=== PATIENT | female | born 1955 | race Caucasian/White ===

== ENCOUNTER → 2017-01-25 | Outpatient (CLI) | payer OTHER ==
--- NOTE | 2017-01-26 13:32 | MAMMOGRAPHY REPORT ---
BILATERAL DIGITAL SCREENING MAMMOGRAM TOMOSYNTHESIS WITH CAD: 01/25/2017 CLINICAL HISTORY: Routine screening. Patient has no complaints. TECHNIQUE: Breast tomosynthesis in addition to standard 2D mammography was performed. Current study was also evaluated with a Computer Aided Detection (CAD) system. COMPARISON: Comparison is made to exams dated: 01/29/2014 mammogram, 06/02/2006 mammogram, and 12/11/19 04 mammogram - [facility]. BREAST COMPOSITION: The tissue of both breasts is heterogeneously dense, which may obscure small mas ses. FINDINGS: There is possible architectural distortion seen within the right lateral breast on the cc tomosynthesis images, likely projecting superiorly on the MLO view, for which spot compression tomosy nthesis views and possible breast ultrasound are recommended for further evaluation. The remainder of both breasts are stable compared to prior exams, without suspicious masses, calcific ations, or areas of architectural distortion noted. IMPRESSION: ACR BI-RADS CATEGORY 0: INCOMPLETE EVALUATION: NEED ADDITIONAL IMAGING EVALUATION Possible right breast architectural distortion, for which additional imaging evaluation is recommende d. The patient will be called to schedule an appointment. Approximately 10% of breast cancers are not detected with mammography. A negative mammographic report should not delay biopsy if a clinically suggestive mass is present. Jessica Stuart M.D. ah/:01/25/2017 17:07:00 Research Dietitian: Laurie FELIZ(R)(M), [facility] letter sent: Addl Imaging 0 BI-RADS Code: ACR BI-RADS Category 0: Incomplete Evaluation: Need Additional Imaging Evaluation
== END | disposition home or self-care (01) ==
LOC: C.MAMM 12:54
PROVIDERS: ATTEND Internal Medicine
DX: Z12.31 Encounter for screening mammogram for malignant neoplasm of breast (principal); R92.8 Other abnormal and inconclusive findings on diagnostic imaging of breast

== ENCOUNTER → 2017-02-08 | Outpatient (CLI) | payer OTHER ==
--- NOTE | 2017-02-08 16:07 | MAMMOGRAPHY REPORT ---
UNILATERAL RIGHT DIGITAL DIAGNOSTIC MAMMOGRAM TOMOSYNTHESIS AND TARGETED RIGHT ULTRASOUND: 02/08/2017 CLINICAL HISTORY: 61-year-old woman called back from screening mammography for possible architectural distortion in the right breast. TECHNIQUE: Spot compression right CC and MLO 2-D and tomosynthesis images were obtained. COMPARISON: Comparison is made to exams dated: 06/02/2006 mammogram, 01/29/2014 mammogram, 01/25/2017 mammogram, and 02/08/2017 ultrasound - [facility]. BREAST COMPOSITION: There are scattered areas of fibroglandular density in the right breast. FINDINGS: The spot compression views of the right breast demonstrate persistent focal architectural distortion in the upper outer middle to posterior right breast. It is difficult to obtain accurate m easurements mammographically, but the total area of distortion measures approximately 2.7 x 2.1 cm. No associated microcalcification. No other definite areas of distortion are seen in the visualized r ight breast. Further evaluation with ultrasound was performed. Targeted ultrasound was performed in the lateral right breast with particular attention to the 8:00 t hrough 10:00 axes. In the 9:00 to 9:30 right breast, 7 cm from the nipple, there is an ill-defined h ypoechoic area of shadowing. Architectural distortion is not definitely appreciated. The area of sh adowing could correspond to the mammographic distortion but given the vague nature I am unsure if thi s definitively correlates. The shadowing area on ultrasound measures approximately 8.9 x 8.7 mm. No other discrete solid or cystic mass is seen in the lateral right breast on ultrasound. IMPRESSION: ACR BI-RADS CATEGORY 0: INCOMPLETE EVALUATION: NEED ADDITIONAL IMAGING EVALUATION, TARG ETED ULTRASOUND ACR BI-RADS CATEGORY 0: INCOMPLETE EVALUATION: NEED ADDITIONAL IMAGING EVALUATION There is subtle focal architectural distortion in the upper outer middle one third of the right breas t identified mammographically, without definitive sonographic correlate. Architectural distortion is suspicious for radial scar versus carcinoma. Potential options of surgical excision with tomosynthe sis guided preoperative localization versus breast MRI and potential MRI guided biopsy were provided to the patient. I would prefer MRI and minimally invasive image biopsy if possible, as it puts the p atient at less risk of general anesthesia and sedation. Therefore, further evaluation with a contras t-enhanced breast MRI is recommended to exclude the possibility of a suspicious enhancing mass in the right upper outer quadrant. These results and recommendations were discussed with the patient at the time of the exam. She will consider her options and contact her insurance company prior to making any further appointments. Approximately 10% of breast cancers are not detected with mammography. A negative mammographic report should not delay biopsy if a clinically suggestive mass is present. Zoe Escamilla M.D. ay/:02/08/2017 14:32:42 Freelance Operator: Melvina FELIZ(R)(M), [facility] letter sent: Addl Imaging 0 BI-RADS Code: ACR BI-RADS Category 0: Incomplete Evaluation: Need Additional Imaging Evaluation Ult rasound BI-RADS: ACR BI-RADS Category 0: Incomplete Evaluation: Need Additional Imaging Evaluation
== END | disposition home or self-care (01) ==
LOC: C.MAMM 13:46
PROVIDERS: ATTEND Internal Medicine
DX: R92.8 Other abnormal and inconclusive findings on diagnostic imaging of breast (principal)

== ENCOUNTER → 2017-05-21 | Outpatient (CLI) | payer OTHER ==
[2017-05-21 11:21] LABS: BLOOD UREA NITROGEN 28 mg/dl (7-18); CREATININE 0.84 mg/dl (0.60-1.20)
== END | disposition home or self-care (01) ==
LOC: C.LABBC 08:34
PROVIDERS: ATTEND Internal Medicine Geriatric Medicine
DX: Z01.812 Encounter for preprocedural laboratory examination (principal)

== ENCOUNTER → 2017-05-25 | Outpatient (CLI) | payer OTHER ==
[~2017-05-25] MED LIST: GADAVIST IV PRN
--- NOTE | 2017-05-28 08:15 | MAMMOGRAPHY REPORT ---
BREAST MRI OF BOTH BREASTS : 05/25/2017 CLINICAL HISTORY: 62-year-old woman with a focal area of architectural distortion in the lateral righ t breast but no sonographic correlate identified. At the time of diagnostic workup tomosynthesis wilfredo ded biopsy was not available at this institution and MRI breast recommended to assess for an abnormal enhancing mass for possible biopsy targeting purposes. In the interval from diagnostic workup to th e current exam, tomosynthesis guided biopsy is now available at this institution. COMPARISON: Comparison is made to exams dated: 06/02/2006 mammogram, 01/29/2014 mammogram, 01/25/2017 mammogram, 02/08/2017 mammogram, and 02/08/2017 ultrasound - [facility]. TECHNIQUE: Using a 1.5 Yasemin magnet and dedicated breast coil, multisequence axial images were obtain ed through the breasts. After uneventful IV administration of 14 mL of Gadavist, dynamic multiphase contrast-enhanced axial images, and sagittal postcontrast were obtained. Temporal subtraction axial images and 3-D MIP images are provided. Everything was then reviewed on a 3-D workstation, [employer]. FINDINGS: Right breast: There is moderate background parenchymal enhancement with numerous round and oval scatt ered enhancing foci throughout the right breast. There is focal enhancing architectural distortion i n the 9:00 middle to posterior right breast, measuring approximately 13 x 14 x 21 mm (axial page 92/1 30 and sagittal page 120/144). This demonstrates predominantly persistent with central plateau kinet ics and correlates with the subtle architectural distortion seen mammographically. This enhancing ar ea of distortion is suspicious for malignancy and definitive characterization with tissue sampling is recommended. Given that tomosynthesis guided biopsy is currently available at our institution, a st ereotactic tomosynthesis guided biopsy is recommended. No other suspicious enhancing mass, suspiciou s non-mass enhancement or suspicious kinetics is identified in the right breast. There is no skin th ickening or nipple retraction. The retromammary fat is intact. There is a slightly prominent right axillary lymph node in the superior axillary region measuring 18 mm, with a cortex measuring up to 5. 6 mm. Although this could be due to imaging angle, further evaluation with a second look ultrasound in the right axilla is recommended. If a morphologically abnormal lymph node is identified, ultrasou nd-guided core biopsy could also be performed. Left breast: There is moderate background parenchymal enhancement, with numerous round and oval scatt ered enhancing foci throughout the left breast. No suspicious enhancing mass, non-mass enhancement, suspicious kinetics or architectural distortion is seen. No skin thickening or nipple retraction. T he retromammary fat is intact. No suspicious left axillary lymphadenopathy. IMPRESSION: ACR BI-RADS CATEGORY 4: SUSPICIOUS 1. There is enhancing focal architectural distortion in the 9:00 middle to posterior right breast me asuring 21 mm, and correlating with the mammographic distortion. This finding remain suspicious and further evaluation with a stereotactic tomosynthesis guided biopsy is recommended. 2. There is a slightly prominent right axillary lymph node with possible thickened cortex measuring up to 5.6 mm. Targeted second look ultrasound in the right axilla with possible ultrasound-guided co re biopsy is recommended. 3. No MRI evidence of malignancy in the left breast. The patient will be called to schedule an appointment. Zoe Escamilla M.D. ay/:05/25/2017 16:08:35 Hand Straightener: photolith operator, [facility] letter sent: Abnormal 4/5 BI-RADS Code: ACR BI-RADS Category 4: Suspicious
== END | disposition home or self-care (01) ==
LOC: C.MRI 13:20
PROVIDERS: ATTEND Internal Medicine
DX: R92.8 Other abnormal and inconclusive findings on diagnostic imaging of breast (principal); R59.0 Localized enlarged lymph nodes

== ENCOUNTER → 2017-06-10 | Outpatient (CLI) | payer OTHER ==
--- NOTE | 2017-06-10 09:43 | Discharge Instructions ---
Discharge Instructions Procedure Procedure Date: Jun 10, 2017. Reason for visit: Rt Distortion/2ND Look Us Poss Bx Rt Axillary Ln. Discharge Discharge Date: Jun 10, 2017. Discharge Diagnosis: status post breast biopsy Instructions Activity Recommendations: Additional Limitations (see below) Return to School/Work: no limitations Recommended Home Diet: No Limitations Provider Instructions: ACTIVITY RECOMMENDATIONS: * No lifting, pushing, pulling or exercising the affected side for three days. RETURN TO SCHOOL/WORK: * You may return to work/school after the procedure, but do not perform any strenuous activities for 24 to 48 hours. MEDICATIONS: * Tylenol (two 325 mg) every four to six hours if needed for mild pain (if not allergic to Tylenol). DIET: * Resume previous diet. SPECIAL CARE INSTRUCTIONS: * Keep biopsy site dry for 24 hours. May shower after 24 hours, but do not soak (bathe) incision. * May remove Tegaderm (plastic patch) tomorrow AFTER showering. * Leave the steri-strips on for one week. Allow the steri-strips to fall off by themselves. If not off after one week, you may remove them. You may place a Bandaid crosswise over the strips, if desired. * Apply ice 10 minutes on and 10 minutes off as needed. * Wear a bra at bedtime to sleep more comfortably for 2-3 days. * Your referring physician should have the results after approximately 5 to 7 business days. * Call for unusual bleeding, fever, drainage, etc or if you have any questions call during normal business hours or after hours call Dr Stuart, . FOLLOW UP VISIT: Follow-up with Referring Physician as scheduled. Allergies Uncoded Allergies: DEMEROL, MARCAINE (Allergy, Unknown, 08/17/02) N (Allergy, Unknown, 08/17/02) NKA (Allergy, Unknown, 08/17/02) NO (Allergy, Unknown, 08/17/02) NONE (Allergy, Unknown, 08/17/02) Marina Ramirez Recommendations: Call your doctor if: * Temperature above 101 degrees * Pain not relieved by pain medicine ordered * There is increased drainage or redness from any incision * You have any unanswered questions or concerns. Your Doctors Instructions noted above were prepared by provider Jessica Stuart. Patient Signature Section: Patient Instructions Signature Page Edith Alvarado Patient (or Guardian) Signature/Date: I have read and understand the instructions given to me by my caregivers. Caregiver/RN/Doctor Signature/Date: The above-named patient and/or guardian has received patient instructions on this date. + Original Patient Signature Page (only) stays with chart. Please make copy for patient.
--- NOTE | 2017-06-10 14:36 | MAMMOGRAPHY REPORT ---
STEREOTACTIC GUIDED BIOPSY RIGHT BREAST: 06/10/2017 CLINICAL HISTORY: Architectural distortion in the right 9:00 breast, with corresponding enhancement s een on recent breast MRI. PATIENT CONSENT: The procedure, risks, benefits, and alternatives of stereotactic biopsy with clip pl acement were discussed with the patient, and verbal and written consent was obtained. A timeout was performed immediately prior to the procedure. PROCEDURE DESCRIPTION: With tomosynthesis stereotactic guidance, aseptic technique, and lidocaine as a local anesthetic (1% lidocaine to anesthetize the skin and 1% lidocaine with epinephrine to anesthe tize the deeper tissues), the architectural distortion of concern in the right 9:00 breast was sample d multiple times with a 9-gauge vacuum-assisted biopsy needle ([employer]). The path of approach wa s craniocaudal. A metallic marker clip was placed at the biopsy site. This was confirmed on postpro cedure mammograms. Direct pressure was applied at the biopsy site and hemostasis was readily achieve d. The patient tolerated the procedure without complication. She was given wound care instructions. COMPARISON: Comparison is made to exams dated: 05/25/2017 breast MRI, 02/08/2017 mammogram, 02/08/2017 u ltrasound, 01/25/2017 mammogram, 01/29/2014 mammogram, and 06/02/2006 mammogram - [facility]. IMPRESSION: STEREOTACTIC GUIDED BIOPSY Tomosynthesis stereotactic biopsy of the enhancing architectural distortion in the right 9:00 breast, with clip placement. The patient will receive pathology results from her referring provider. Jessica Stuart M.D. ah/:06/10/2017 10:00:33 Shop Foreman: Ashanti Tubbs, [facility]
--- NOTE | 2017-06-10 14:36 | MAMMOGRAPHY REPORT ---
UNILATERAL RIGHT DIGITAL DIAGNOSTIC MAMMOGRAM TOMOSYNTHESIS: 06/10/2017 CLINICAL HISTORY: Status post right breast stereotactic biopsy. TECHNIQUE: Breast tomosynthesis in addition to standard 2D mammography was performed. Postprocedura l right CC and ML tomosynthesis images including C views were obtained. COMPARISON: Comparison is made to exams dated: 06/10/2017 stereotactic biopsy, 05/25/2017 breast MRI, 02/08/2017 mammogram, 02/08/2017 ultrasound, 01/25/2017 mammogram, and 01/29/2014 mammogram - [facility]. BREAST COMPOSITION: There are scattered areas of fibroglandular density in the right breast. FINDINGS: A new biopsy marker clip is seen at the site of the biopsied architectural distortion in t he right 9:00 breast. No significant postbiopsy hematoma is seen. IMPRESSION: POST PROCEDURE IMAGING FOR MARKER PLACEMENT New biopsy marker clip status post right breast biopsy. Pathology results are pending. Approximately 10% of breast cancers are not detected with mammography. A negative mammographic report should not delay biopsy if a clinically suggestive mass is present. Jessica Stuart M.D. ah/:06/10/2017 10:12:49 Nuclear Plant Operator: Alix FELIZ(Oneyda)(Danny), [facility] BI-RADS Code: Post Procedure Imaging For Marker Placement
--- NOTE | 2017-06-10 14:36 | MAMMOGRAPHY REPORT ---
ULTRASOUND OF RIGHT BREAST: 06/10/2017 CLINICAL HISTORY: Prominent right axillary lymph node seen on recent breast MRI, for which second loo k ultrasound was recommended. COMPARISON: Comparison is made to exams dated: 06/10/2017 stereotactic biopsy, 05/25/2017 breast MRI, 02/08/2017 mammogram, 01/25/2017 mammogram, and 01/29/2014 mammogram - [facility]. TECHNIQUE: Real-time targeted ultrasound of the right axilla was performed. FINDINGS: Real-time, high resolution targeted ultrasound was performed of the right axilla. There a re morphologically normal right axillary lymph nodes which have normal fatty rose marie and thin peripheral cortices. No morphologically abnormal lymph node is seen. Given the absence of adenopathy, biopsy was not performed. IMPRESSION: ACR BI-RADS CATEGORY 2: BENIGN Morphologically normal right axillary lymph nodes on ultrasound, without evidence of adenopathy. Giv en that the lymph nodes appear normal morphologically, biopsy was not performed. The patient was joao bally notified of the results. Jessica Stuart M.D. ah/:06/10/2017 10:03:04 Campaign Specialist: Jessica Stuart MD, [facility] BI-RADS Code: ACR BI-RADS Category 2: Benign
== END | disposition home or self-care (01) ==
LOC: C.MAMM 08:59
PROVIDERS: ATTEND Internal Medicine
DX: R92.0 Mammographic microcalcification found on diagnostic imaging of breast (principal); N60.21 Fibroadenosis of right breast

== ENCOUNTER 2017-07-23 07:50 | Day surgery (SDC) | payer OTHER ==
[2017-07-13 08:27] VITALS: Ht 171.5 cm; Wt 139.3 kg
--- NOTE | 2017-07-13 09:12 | PAT Medication Instructions ---
Service Date Jul 13, 2017. Current Home Medication List Aspirin (Aspirin Ec), 81 MG PO QPM Calcium Carbonate-Vitamin D (Calcium), 1 TAB PO AM Cholecalciferol (Vitamin D3), 1 TAB PO AM Chromium (Chromium), 1 TAB PO AM1-2 X WEEK Clobetasol Propionate (Clobetasol Propionate), 1 APPLN TOP QAM Cyanocobalamin (Vitamin B-12 1000 Mcg), 1,000 MCG PO AM Fish Oil (Good [place]-3), 1 CAP PO AM Ecnsemeebqp-Fkogifcwbep-Pql C- (Glucosamine Chondroitin), 1 TAB PO AM Triamterene/Hctz (Dyazide 37.5MG/25MG), 1 TAB PO QPM [Ketoconazole 2%], 1 DOSE TOP PRN Medication Instructions For Your Scheduled Surgery -Contact your surgeon for instructions for: Aspirin (Aspirin Ec), 81 MG PO QPM - Hold the following medications 2 weeks prior to surgery: Fish Oil (Good Hope-3), 1 CAP PO AM Gvmpwmzwleu-Bkntnktefgj-Npt C- (Glucosamine Chondroitin), 1 TAB PO AM - Hold the following medications 24 hours prior to surgery: [Ketoconazole 2%], 1 DOSE TOP PRN Clobetasol Propionate (Clobetasol Propionate), 1 APPLN TOP QAM - Hold the following medications the night before to surgery: Triamterene/Hctz (Dyazide 37.5MG/25MG), 1 TAB PO QPM - Hold the following medications the morning of surgery: Calcium Carbonate-Vitamin D (Calcium), 1 TAB PO AM Cholecalciferol (Vitamin D3), 1 TAB PO AM Cyanocobalamin (Vitamin B-12 1000 Mcg), 1,000 MCG PO AM Chromium (Chromium), 1 TAB PO AM1-2 X WEEK *NOTHING TO EAT OR DRINK AFTER MIDNIGHT* If you have any questions please call us at [phone] or [phone] or [phone]
[2017-07-13 10:24] LABS: BASO % 0.3 %; BASO ABS # 0.02 K/uL (0-0.2); EOS % 1.5 %; EOS ABS # 0.11 K/uL (0-0.5); HEMATOCRIT 37.5 % (37-47); HEMOGLOBIN 12.7 g/dL (12.0-16.0); IG# 0.01 K/uL (0.00-0.02); LYMPH % 23.5 %; LYMPH ABS # 1.75 K/uL (1.2-3.4); MEAN CELL VOLUME 90.1 fL (80-100); MEAN CORPUSCULAR HEMOGLOBIN 30.5 pg (25-34); MEAN CORPUSCULAR HGB CONC 33.9 g/dl (32-36); MEAN PLATELET VOLUME 8.7 fL (7.4-10.4); MONO % 6.3 %; MONO ABS # 0.47 K/uL (0.11-0.59); NEUT % 68.3 %; NEUT ABS # 5.09 K/uL (1.4-6.5); PLATELET COUNT 238 K/uL (130-400); RED CELL DISTRIBUTION WIDTH CV 12.9 % (11.5-14.5); RED CELL DISTRIBUTION WIDTH SD 42.3 fL (36.4-46.3); WHITE BLOOD COUNT 7.45 K/uL (4.8-10.8)
[2017-07-13 11:30] LABS: CALCIUM 9.2 mg/dl (8.5-10.1); CREATININE 0.78 mg/dl (0.60-1.20); POTASSIUM 3.5 mmol/L (3.5-5.1)
[~2017-07-23] VITALS: Ht 171.5 cm; Wt 139.3 kg
[~2017-07-23 07:50] MED LIST changes: +ASPI81TA28 PO; +CALC-51 PO; +CEFAZOLIN 3000MG IV PUSH 15 ML IV SCH; +CHOL1000 PO; +CHRO200T3 PO; +CLBPO15 TOP; +CYAN10004 PO; -GADAVIST IV PRN; +GLUCTAB7 PO; +KETOCONAZOLE 2% TOP; +LACTATED RINGER'S 1000ML 1,000 ML IV SCH; +OMEG10007 PO; +TRIA37.5 PO
[2017-07-23 08:58] VITALS: BP 163/85; PULSE 80; TEMP 36.9; O2SAT 97
--- NOTE | 2017-07-23 09:50 | History & Physical Bridge Note ---
H&P Re-Evaluation Bridge Note: I have examined the patient, reviewed the History & Physical and in the interval since the performance of the History & Physical I have noted the following changes of clinical significance: No changes noted
[2017-07-23] MEDS ORDERED: LABETALOL HCL IV 5 MG/ML 20ML IV PRN (10:00)
[2017-07-23] MEDS ORDERED: HYDROmorphone INJ 1 MG/ML SYR IV PRN (10:00)
[2017-07-23] MEDS ORDERED: MEPERIDINE HCL 25 MG/ML CARP IV PRN (10:00)
[2017-07-23] MEDS ORDERED: EpHEDrine SULFATE INJ 50 MG/ML AMP IV PRN (10:00)
[2017-07-23] MEDS ORDERED: ATROPINE SULFATE 0.1 MG/ML 5ML SYR IV PRN (10:00)
[2017-07-23] MEDS ORDERED: FENTANYL CITRATE INJ 50 MCG/1 ML 2 ML VIAL IV PRN (10:00)
[2017-07-23] MEDS ORDERED: ONDANSETRON INJ 2 MG/ML 2 ML VIAL IV PRN ×2 (10:00→11:45)
[2017-07-23] MEDS ORDERED: MIDAZOLAM HCL 1 MG/ML 2ML VIAL ONE (10:12)
[2017-07-23] MEDS ORDERED: PROPOFOL IV EMULSION 10 MG/ML 20 ML VIAL IV ONE (10:12)
[2017-07-23] MEDS ORDERED: LIDOCAINE HCL 2% 2 ML VIAL (20MG/ML) ONE (10:12)
[2017-07-23] MEDS ORDERED: FENTANYL CITRATE INJ 50 MCG/1 ML 2 ML VIAL ONE ×2 (10:12→11:02)
--- NOTE | 2017-07-23 11:27 | [facility] Post Operative Brief Note ---
Immediate Operative Summary Operative Date Jul 23, 2017. Pre-Operative Diagnosis abnormal mammogram Post-Operative Diagnosis same Procedure(s) Performed right breast lumpectomy with needle LOC Surgeon robert Pediatric Dietician Surgeon(s) Ortiz whyte Estimated Blood Loss 5 cc Findings Consistent with Post-Op Diagnosis Specimens right breast lump Anesthesia Type General Complication(s) none Disposition Disposition: Recovery Room / PACU
[2017-07-23] MEDS ORDERED: ONDANSETRON INJ 2 MG/ML 2 ML VIAL ONE (11:41)
[2017-07-23] MEDS ORDERED: KETOROLAC TROMETHAMINE 30 MG/ML VIAL ONE (11:41)
[2017-07-23] MEDS ORDERED: DEXAMETHASONE SOD INJ 4 MG/ML VIAL ONE (11:41)
[2017-07-23] MEDS ORDERED: GLYCOPYRROLATE INJ 0.2 MG/ML VIAL ONE (11:41)
[2017-07-23] MEDS ORDERED: NEOSTIGMINE METHYLSULFATE 5 MG/5 ML SYR ONE (11:41)
[2017-07-23] MEDS ORDERED: HYDR-5688 PO (11:42)
[2017-07-23] MEDS ORDERED: LACTATED RINGER'S 1000ML 1,000 ML IV SCH (11:44)
--- NOTE | 2017-07-23 11:44 | Discharge Instructions ---
Discharge Instructions Date of Service Jul 23, 2017. Visit Reason for Visit: Radial Scar Of Right Breast W/Hosp Loc Discharge Discharge Diagnosis / Problem: right lumpectomy Discharge Goals Goal(s): Diagnostic testing Activity Recommendations Activity Limitations: as noted below Shower/Bathe: tomorrow Anesthesia . Post Anesthesia Instructions: If you have had General Anesthesia or IV Sedation: * Do not drive today. * Resume driving when surgeon permits. * Do not make important decisions or sign legal documents today. * Call surgeon for: 1. Temperature elevations greater than 101 degrees F. 2. Uncontrollable pain. 3. Excessive bleeding. 4. Persistent nausea and vomiting. 5. Medication intolerance (nausea, vomiting or rash). * For nausea and vomiting use only clear liquids such as: tea, soda, bouillon until nausea subsides, then gradually increase diet as tolerated. * If you have any concerns or questions, call your surgeon's office. If physician is unavailable and it is an emergency, call 911 or go to the nearest emergency room. . Instructions / Follow-Up Instructions / Follow-Up Dr. Ryan in 1-2 weeks as planned, call [phone] for any questions Diet Recommendations Recommended Home Diet: no limitations Procedures Procedures Performed: Right Breast Lumpectomy with Needle Localization Pending Studies Studies pending at discharge: yes List of pending studies: pathology Medical Emergencies . Who to Call and When: Medical Emergencies: If at any time you feel your situation is an emergency, please call 911 immediately. . Non-Emergent Contact Non-Emergency issues call your: Surgeon Call Non-Emergent contact if: you have a fever, temperature is above 101.5, your pain is not controlled, wound has increased pain . . "Provider Documentation" section prepared by Shayan Livingston. .
[2017-07-23] MEDS ORDERED: MoRPHine SULFATE 4 MG/ML 1 ML CARP\\VIAL IV PRN (11:45)
[2017-07-23] MEDS ORDERED: HYDROCODONE/ACETAMOPHEN 5/325MG TAB PO PRN (11:45)
--- NOTE | 2017-07-23 11:47 | [facility] Operative Report ---
Operative Report Operative Date Jul 23, 2017. Pre-Operative Diagnosis Right Breast Mass Post-Operative Diagnosis Right Breast Mass Procedure(s) Performed Right Breast Lumpectomy with Needle Localization Surgeon Dr. Deven Ryan Fish Net Maker Surgeon(s) Shayan Livingston PA-C Estimated Blood Loss 5ml Findings normal breast tissue Specimens A.) Right Breast - 1.) short stitch superior 2.) long stitch lateral Anesthesia get Complication(s) None Disposition Recovery Room / PACU Description of Procedure After informed consent was obtained the patient had been previously taken to the breast dupo where needle localization was performed under mammography. She was then brought to the operating suite placed in supine position with the right arm extended. After successful intubation the right breast and chest wall were sterilely prepped and draped in usual fashion. I began by making a curvilinear incision just superior and medial to the guidewire. We carried this down through the soft tissue creating flaps using electrocautery. We then cut the wire delivered into the wound itself. Using traction countertraction and cautery we continued to come around the wire in 360 following this down and around the tip of the wire. By continuing to use retraction countertraction and cautery were eventually able to remove the breast lump and one large piece with the guidewire in the center. We marked the specimen such that one short suture marked the superior aspect and 2 long sutures marking the lateral aspect. We did x-ray this and ensured that the clip specimen and guidewire were all adequate. We controlled any bleeding points using electrocautery. We thoroughly irrigated the wound and close it multiple layers using 2-0 Vicryl for deep layers 3-0 Vicryl in layers and 4-0 Monocryl for the skin. Benzoin and Steri-Strips were used for dressing patient was awaken extubated and transferred recovery in stable condition My physician's workforce development assistant was present throughout the entire case. He helped prepped the patient as well as helped with traction throughout the procedure. He also helped with wound closure and dressing placement I attest to the content of the Intraoperative Record and any orders documented therein. Any exceptions are noted below.
[2017-07-23 12:27] VITALS: BP 163/79; PULSE 71; TEMP 36.4; O2SAT 93
--- NOTE | 2017-07-23 12:36 | Anesthesiology Progress Note ---
Anesthesia Post Op Note Date & Time Jul 23, 2017 at 12:35 Vital Signs Pain Intensity: 2.0 Vital Signs Past 12 Hours Date Time Temp Pulse Resp B/P (MAP) Pulse Ox O2 Delivery O2 Flow Rate FiO2 07/23/17 12:20 36.3 71 15 156/79 97 Room Air 07/23/17 12:10 76 20 145/80 94 Room Air 07/23/17 12:00 73 12 162/84 99 Oxymask 10 07/23/17 11:50 72 12 163/85 100 Oxymask 10 07/23/17 11:44 36.2 74 16 175/85 100 Oxymask 10 07/23/17 08:58 36.9 80 18 163/85 (111) 97 Room Air Notes Mental Status: alert / awake / arousable, participated in evaluation Pt Amnestic to Procedure: Yes Nausea / Vomiting: adequately controlled Pain: adequately controlled Airway Patency, RR, SpO2: stable & adequate BP & HR: stable & adequate Hydration State: stable & adequate Anesthetic Complications: no major complications apparent
[2017-07-23 12:57] VITALS: BP 164/76; PULSE 70; TEMP 36.5; O2SAT 95
--- NOTE | 2017-07-23 13:57 | MAMMOGRAPHY REPORT ---
SPECIMEN RIGHT BREAST: 07/23/2017 CLINICAL HISTORY: Status post right breast surgical excision. COMPARISON: Comparison is made to exams dated: 06/10/2017 ultrasound, 06/10/2017 mammogram, 06/10/2017 stereotactic biopsy, 05/25/2017 breast MRI, and 02/08/2017 mammogram - [facility]. Findings: A radiograph was performed of the right breast surgical specimen. The localized biopsy mar ker clip is present within the specimen. Subtle distortion is also seen within the specimen adjacent to the distal aspect of the wire. Results were discussed with Dr. Ryan over the telephone. IMPRESSION: SPECIMEN The imaged specimen contains the preoperatively localized abnormality. Jessica Stuart M.D. ah/:07/23/2017 11:54:35 Chucker: Melvina MAYNARD)(M), [facility]
--- NOTE | 2017-07-23 13:57 | MAMMOGRAPHY REPORT ---
NEEDLE LOCALIZATION RIGHT BREAST: 07/23/2017 CLINICAL HISTORY: Recent stereotactic biopsy of a focal asymmetry in the right 9 o'clock breast, with pathology yielding a radial sclerosing lesion. The patient presents for needle localization prior t o surgical excision. PROCEDURE DESCRIPTION: With imaging guidance, aseptic technique, and 1% lidocaine as the local anesth etic, the area of concern was localized with a 7.5 cm Cruz II needle. The path of approach was la teral. The architectural distortion in the right 9:00 breast is located along the distal portion of the wire, predominantly posterior to the wire, with marielos located at the central aspect of the distort ion. The biopsy marker clip is located approximately 2.6 cm proximal to the tip of the wire, inferio r to the wire. The needle was removed. The patient tolerated the procedure without complication. COMPARISON: Comparison is made to exams dated: 06/10/2017 ultrasound, 06/10/2017 mammogram, 06/10/2017 stereotactic biopsy, 05/25/2017 breast MRI, 02/08/2017 mammogram, and 02/08/2017 ultrasound - [facility]. IMPRESSION: NEEDLE LOCALIZATION Mammographic guided needle localization of the architectural distortion and associated biopsy marker clip in the right 9:00 breast. Jessica Stuart M.D. 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
== END 2017-07-23 13:19 | disposition home or self-care (01) ==
LOC: C.ACU 07:50
PROVIDERS: ATTEND Surgery
DX: N60.21 Fibroadenosis of right breast (principal); N64.89 Other specified disorders of breast; I10 Essential (primary) hypertension; G47.30 Sleep apnea, unspecified; Z82.49 Family history of ischemic heart disease and other diseases of the circulatory system; Z83.3 Family history of diabetes mellitus; Z79.82 Long term (current) use of aspirin; Z79.899 Other long term (current) drug therapy; Z80.41 Family history of malignant neoplasm of ovary; Z80.49 Family history of malignant neoplasm of other genital organs

== ENCOUNTER → 2018-01-31 | Outpatient (CLI) | payer OTHER ==
[~2018-01-31] MED LIST changes: -CEFAZOLIN 3000MG IV PUSH 15 ML IV SCH; -LACTATED RINGER'S 1000ML 1,000 ML IV SCH
--- NOTE | 2018-01-31 11:50 | DIAGNOSTIC IMAGING REPORT ---
L VENOUS DOPP LOWER EXT UNILAT CLINICAL HISTORY: M79.89 Left leg [id number] pain. Edema. TECHNIQUE: Venous Doppler COMPARISON STUDY: None FINDINGS: No evidence for deep venous thrombosis. All major venous structures are patent. There is a 6 x 3 cm complex popliteal cyst posterior to the left knee. IMPRESSION: 1. Study is negative for deep venous thrombosis 2. 6 x 3 cm complex popliteal cyst posterior to the left knee. The above report was generated using voice recognition software. It may contain grammatical, syntax or spelling errors. Electronically signed by: Abraham Camilo M.D. 01/31/2018 11:49 AM Dictated Date/Time: 01/31/2018 11:48 AM
[2018-01-31 12:53] LABS: BASO % 0.3 %; BASO ABS # 0.02 K/uL (0-0.2); EOS ABS # 0.14 K/uL (0-0.5); HEMATOCRIT 36.4 % (37-47); HEMOGLOBIN 12.1 g/dL (12.0-16.0); IG# 0.03 K/uL (0.00-0.02); LYMPH % 23.3 %; LYMPH ABS # 1.65 K/uL (1.2-3.4); MEAN CELL VOLUME 91.5 fL (80-100); MEAN CORPUSCULAR HEMOGLOBIN 30.4 pg (25-34); MEAN CORPUSCULAR HGB CONC 33.2 g/dl (32-36); MEAN PLATELET VOLUME 8.8 fL (7.4-10.4); MONO % 6.2 %; MONO ABS # 0.44 K/uL (0.11-0.59); NEUT % 67.8 %; NEUT ABS # 4.79 K/uL (1.4-6.5); PLATELET COUNT 247 K/uL (130-400); RED CELL DISTRIBUTION WIDTH CV 13.7 % (11.5-14.5); RED CELL DISTRIBUTION WIDTH SD 45.6 fL (36.4-46.3); WHITE BLOOD COUNT 7.07 K/uL (4.8-10.8)
[2018-01-31 13:10] LABS: BLOOD UREA NITROGEN 20 mg/dl (7-18); CALCIUM 8.8 mg/dl (8.5-10.1); CARBON DIOXIDE 28 mmol/L (21-32); CREATININE 0.84 mg/dl (0.60-1.20); GLUCOSE 89 mg/dl (70-99); POTASSIUM 3.6 mmol/L (3.5-5.1); SODIUM 138 mmol/L (136-145)
== END | disposition home or self-care (01) ==
LOC: C.ULTR 11:01
PROVIDERS: ATTEND Nurse Practitioner Adult Health
DX: M79.89 Other specified soft tissue disorders (principal); M71.22 Synovial cyst of popliteal space [Baker], left knee

== ENCOUNTER → 2018-01-31 | Outpatient (CLI) | payer OTHER ==
--- NOTE | 2018-02-01 15:24 | MAMMOGRAPHY REPORT ---
BILATERAL DIGITAL SCREENING MAMMOGRAM TOMOSYNTHESIS WITH CAD: 01/31/2018 CLINICAL HISTORY: Routine screening. TECHNIQUE: The study was acquired using full field digital technology and interpreted from soft copy. Breast tomosynthesis in addition to standard 2D mammography was performed. Current study was also ev aluated with a Computer Aided Detection (CAD) system. COMPARISON: Comparison is made to exams dated: 06/10/2017 mammogram, 02/08/2017 mammogram, 01/25/2017 ma mmogram, 01/29/2014 mammogram, 06/02/2006 mammogram, and 12/11/2003 mammogram - [facility] nter. BREAST COMPOSITION: There are scattered areas of fibroglandular density in both breasts. FINDINGS: Linear scar marker overlies the right upper outer posterior breast. There is expected arch itectural distortion at the surgical site in the right upper outer quadrant posteriorly, which yielde d a benign radial scar. There is stable asymmetry in the lateral left breast. No new suspicious mass , architectural distortion or cluster of microcalcifications is seen. IMPRESSION: ACR BI-RADS CATEGORY 1: NEGATIVE There is no mammographic evidence of malignancy. A 1 year screening mammogram is recommended.( [id number]) The patient will receive written notification of the results. Some breast cancers are not detected with mammography. A negative mammographic report should not shukri y biopsy if a clinically suggestive mass is present. Zoe Escamilla M.D. ay/:01/31/2018 20:47:49 Denial Resolution Specialist: RT Dung(Oneyda)(M), [facility] letter sent: Normal 1/2 BI-RADS Code: ACR BI-RADS Category 1: Negative
== END | disposition home or self-care (01) ==
LOC: C.MAMM 08:49
PROVIDERS: ATTEND Internal Medicine
DX: Z12.31 Encounter for screening mammogram for malignant neoplasm of breast (principal)

== ENCOUNTER → 2018-02-21 | Day surgery (SDC) | payer BC, OTHER ==
[2017-06-18 07:53] VITALS: BMI 47.0
[2018-02-15 16:24] VITALS: BMI 47.0
[~2018-02-21] VITALS: Ht 172.7 cm; Wt 140.4 kg
[~2018-02-21] MED LIST changes: -CHRO200T3 PO; +LIDOCAINE HCL 2% 2 ML VIAL (20MG/ML) ONE; +PROPOFOL IV EMULSION 10 MG/ML 20 ML VIAL ONE
[2018-02-21 14:05] VITALS: Ht 172.7 cm; Wt 140.4 kg
[2018-02-21 14:13] VITALS: TEMP 36.8
--- NOTE | 2018-02-21 14:43 | Endo History and Physical ---
History & Physical Date of Service: Feb 21, 2018. Chief Complaint: SCREENING Referring Physician: DR. LAU History of Present Illness 62 yo CF who presents for screening colonoscopy. Past Surgical History Hx Cardiac Surgery: No Hx Internal Defibrillator: No Hx Pacemaker: No Hx Abdominal Surgery: Yes ( X2) Hx of Implantable Prosthesis: No Hx Post-Op Nausea and Vomiting: No Hx Cancer Surgery: No Hx Thoracic Surgery: No Hx Orthopedic: No Hx Urinary Tract Surgery: No Family History Polyp, IBD Social History Smoking Status: Never Smoker Hx Substance Use: No Hx Alcohol Use: No Allergies Coded Allergies: Sulfa Antibiotics (Verified Allergy, Severe, ANAPHYLAXIS, 02/21/18) Bacitracin (Verified Allergy, Intermediate, HIVES AROUND EYES WITH USAGE THERE, 02/21/18) Polymyxin B (Verified Allergy, Intermediate, HIVES AROUND EYES WITH USAGE THERE, 02/21/18) Bupivacaine (Verified Adverse Reaction, Intermediate, "I WAS DOING GOOFY THINGS", 02/21/18) Adhesives (Verified Adverse Reaction, Mild, SKIN IRRITATION, 02/21/18) Morphine (Verified Adverse Reaction, Mild, ITCHING, 02/21/18) Current Medications Reported Home Medications Medications Dose Route/Sig Max Daily Dose Days Date Category Calcium (Calcium Carbonate-Vitamin D) 1 Tab Tab 1 Tab PO 4XWK 07/13/17 Reported [Ketoconazole 2%] 1 Dose TOP PRN 07/13/17 Reported Clobetasol Propionate 45 Appln/15 Gm Oint 1 Appln TOP QAM 30 07/13/17 Reported Aspirin Ec (Aspirin) 81 Mg Tab 81 Mg PO QPM 06/18/17 Reported [place]-3 (Fish Oil) 1 Ea Cap 1 Cap PO AM 06/18/17 Reported Glucosamine Chondroitin (Wwxttijessa-Ylrfmqxheza-Cym C-) 1 Tab Tab 1 Tab PO AM 06/18/17 Reported Vitamin B-12 1000 Mcg (Cyanocobalamin) 1,000 Mcg Tab 1,000 Mcg PO AM 06/18/17 Reported Vitamin D3 (Cholecalciferol) 1,000 Unit Tab 1 Tab PO AM 06/18/17 Reported Dyazide 37.5MG/25MG (Triamterene/HCTZ) Cap 1 Tab PO QAM 06/18/17 Reported Vital Signs Weight (Kilograms): 140.45 Height (Feet): 5 Height (Inches): 8 Date Time Temp Pulse Resp B/P (MAP) Pulse Ox O2 Delivery O2 Flow Rate FiO2 02/21/18 14:13 36.8 78 18 160/87 (111) 98 Room Air Physical Exam General Appearance: WD/WN, no apparent distress Respiratory/Chest: Auscultation: breath sounds normal Cardiovascular: Heart Auscultation: RRR Abdomen: Bowel Sounds: normal Inspection & Palpation: soft, non-distended, no tenderness, guarding & rebound Assessment and Plan Assessment: 62 yo CF who presents for screening colonoscopy. Plan: Proceed with colonoscopy.
--- NOTE | 2018-02-21 15:14 | Anesthesiology Progress Note ---
Anesthesia Post Op Note Date & Time Feb 21, 2018 at 15:13 Vital Signs Pain Intensity: 0 Vital Signs Past 12 Hours Date Time Temp Pulse Resp B/P (MAP) Pulse Ox O2 Delivery O2 Flow Rate FiO2 02/21/18 14:13 36.8 78 18 160/87 (111) 98 Room Air Notes Mental Status: alert / awake / arousable, participated in evaluation Pt Amnestic to Procedure: Yes Nausea / Vomiting: adequately controlled Pain: adequately controlled Airway Patency, RR, SpO2: stable & adequate BP & HR: stable & adequate Hydration State: stable & adequate Anesthetic Complications: no major complications apparent
--- NOTE | 2018-02-21 15:19 | GI REPORT ---
Patient Name: Edith Alvarado Procedure Date: 02/21/2018 2:26 PM Date of : 1955 Admit Type: Outpatient Age: 62 Gender: Female Attending MD: Siddharth Antoine DO Procedure: Colonoscopy Providers: Siddharth Antoine DO Referring MD: Terry Guevara Indications: Screening for colorectal malignant neoplasm Medicines: Monitored Anesthesia Care Complications: No immediate complications. Estimated Blood Loss: Estimated blood loss: none. Procedure: Pre-Anesthesia Assessment: - Prior to the procedure, a History and Physical was performed, and patient medications and allergies were reviewed. The patient's tolerance of previous anesthesia was also reviewed. The risks and benefits of the procedure and the sedation options and risks were discussed with the patient. All questions were answered, and informed consent was obtained. Prior Anticoagulants: The patient has taken aspirin, last dose was 1 day prior to procedure. ASA Grade Assessment: III - A patient with severe systemic disease. After reviewing the risks and benefits, the patient was deemed in satisfactory condition to undergo the procedure. After I obtained informed consent, the scope was passed under direct vision. Throughout the procedure, the patient's blood pressure, pulse, and oxygen saturations were monitored continuously. The scope was introduced through the anus and advanced to the terminal ileum. The colonoscopy was performed without difficulty. The patient tolerated the procedure well. The quality of the bowel preparation was good. The terminal ileum, ileocecal valve, appendiceal orifice, and rectum were photographed. Findings: The perianal and digital rectal examinations were normal. The terminal ileum contained a few four mm ulcers. No bleeding was present. Biopsies were taken with a cold forceps for histology. A 10 mm polyp was found in the ascending colon. The polyp was sessile. The polyp was removed with a hot snare. Resection and retrieval were complete. Scattered small-mouthed diverticula were found in the entire colon. Non-bleeding internal hemorrhoids were found during retroflexion. The hemorrhoids were small. Impression: - A few ulcers in the terminal ileum. Biopsied. - One 10 mm polyp in the ascending colon, removed with a hot snare. Resected and retrieved. - Diverticulosis in the entire examined colon. - Non-bleeding internal hemorrhoids. Recommendation: - Resume previous diet. - Continue present medications. - Repeat colonoscopy for surveillance based on pathology results. - Return to primary care physician as previously scheduled. Siddharth KathiLoree Antoine, DO 02/21/2018 3:18:37 PM This report has been signed electronically. Note Initiated On: 02/21/2018 2:26 PM Number of Addenda: 0 I attest to the content of the Intraoperative Record and orders documented therein, exceptions below {[id number]}
--- NOTE | 2018-02-21 15:43 | Discharge Instructions ---
Endoscopy Patient Instructions Date / Procedure(s) Performed Feb 21, 2018. Colonoscopy Allergy Information Coded Allergies: Sulfa Antibiotics (Verified Allergy, Severe, ANAPHYLAXIS, 02/21/18) Bacitracin (Verified Allergy, Intermediate, HIVES AROUND EYES WITH USAGE THERE, 02/21/18) Polymyxin B (Verified Allergy, Intermediate, HIVES AROUND EYES WITH USAGE THERE, 02/21/18) Bupivacaine (Verified Adverse Reaction, Intermediate, "I WAS DOING GOOFY THINGS", 02/21/18) Adhesives (Verified Adverse Reaction, Mild, SKIN IRRITATION, 02/21/18) Morphine (Verified Adverse Reaction, Mild, ITCHING, 02/21/18) Discharge Date / Findings Feb 21, 2018. Terminal ileum ulcer s/p biopsies Colon polyp Diverticulosis Internal hemorrhoids Medication Instructions OK to resume all medications today as prescribed Reported Home Medications Medications Dose Route/Sig Max Daily Dose Days Date Category Calcium (Calcium Carbonate-Vitamin D) 1 Tab Tab 1 Tab PO 4XWK 07/13/17 Reported [Ketoconazole 2%] 1 Dose TOP PRN 07/13/17 Reported Clobetasol Propionate 45 Appln/15 Gm Oint 1 Appln TOP QAM 30 07/13/17 Reported Aspirin Ec (Aspirin) 81 Mg Tab 81 Mg PO QPM 06/18/17 Reported [place]-3 (Fish Oil) 1 Ea Cap 1 Cap PO AM 06/18/17 Reported Glucosamine Chondroitin (Izkwtvajjwv-Ieksiazjdah-Kmm C-) 1 Tab Tab 1 Tab PO AM 06/18/17 Reported Vitamin B-12 1000 Mcg (Cyanocobalamin) 1,000 Mcg Tab 1,000 Mcg PO AM 06/18/17 Reported Vitamin D3 (Cholecalciferol) 1,000 Unit Tab 1 Tab PO AM 06/18/17 Reported Dyazide 37.5MG/25MG (Triamterene/HCTZ) Cap 1 Tab PO QAM 06/18/17 Reported Provider Instructions Activity Restrictions - No exercising or heavy lifting for 24 hours. - Do not drink alcohol the day of the procedure. - Do not drive a car or operate machinery until the day after the procedure. - Do not make any important decisions or sign important papers in 24 hours after the procedure. Following Day: - Return to full activity which may include returning to work/school. Diet Start your diet with liquids and light foods (jello, soup, juice, toast). Then eat your usual diet if not nauseated. Treatment For Common After Affects For mild abdominal pain, bloating, or excessive gas: - Rest - Eat lightly - Lie on right side Follow-Up Information Follow-up with DR. LAU as scheduled Anesthesia Information What You Should Know You have had a procedure that required some medicine to reduce anxiety and discomfort. This treatment is called moderate sedation. After receiving the treatment, you may be sleepy, but you will be able to breathe on your own. The effects of the treatment may last for several hours. Follow these instructions along with Activity/Diet recommendations noted above: * Do NOT do anything where dizziness or clumsiness would be dangerous. * Rest quietly at home today, then you can be up and about tomorrow. * Have a responsible person stay with you the rest of today. * You may have had an I.V. today. If so, you may take the dressing off later today. Recommendations Call your doctor if: * Trouble breathing * Continuous vomiting for more than 24 hours * Temperature above 101 degrees * Severe abdominal pain or bloating * Pain not relieved by pain medicine ordered * There is increased drainage or redness from any incision * A large amount of rectal bleeding greater than 2-3 tablespoons. (If you had a polyp/s removed or have hemorrhoids, a small amount of blood - from the rectum is to be expected.) * You have any unanswered questions or concerns. IN THE EVENT OF A SERIOUS EMERGENCY, GO TO THE NEAREST EMERGENCY ROOM Your discharge instructions were prepared by provider Siddharth Antoine. Patient Instructions Signature Page Edith Alvarado Patient (or Guardian) Signature/Date: I have read and understand the instructions given to me by my caregivers. Caregiver/RN/Doctor Signature/Date: The above-named patient and/or guardian has received patient instructions on this date. + Original Patient Signature Page (only) stays with chart. Please make copy for patient.
[2018-02-21 15:44] VITALS: BP 162/70; PULSE 71; O2SAT 100
== END | disposition home or self-care (01) ==
LOC: C.GI 13:46
PROVIDERS: ATTEND Internal Medicine
DX: Z12.11 Encounter for screening for malignant neoplasm of colon (principal); D12.2 Benign neoplasm of ascending colon; K63.3 Ulcer of intestine; K52.9 Noninfective gastroenteritis and colitis, unspecified; K57.30 Diverticulosis of large intestine without perforation or abscess without bleeding; K64.8 Other hemorrhoids; I10 Essential (primary) hypertension; G47.33 Obstructive sleep apnea (adult) (pediatric); M19.90 Unspecified osteoarthritis, unspecified site; Z83.79 Family history of other diseases of the digestive system; Z88.2 Allergy status to sulfonamides; Z88.5 Allergy status to narcotic agent; Z88.8 Allergy status to other drugs, medicaments and biological substances; Z86.73 Personal history of transient ischemic attack (TIA), and cerebral infarction without residual deficits; Z79.82 Long term (current) use of aspirin; Z79.899 Other long term (current) drug therapy

== ENCOUNTER 2019-01-24 06:35 | Inpatient (IN) ==
--- NOTE | 2018-12-28 11:14 | Anesthesiology Consultation ---
Date of Service December 28, 2018 Assessment & Plan (1) Encounter for pre-operative examination: Chart Review Chart Review: Acceptable Risk for Surgery and Patient NOT seen in Pre Admission Testing History Surgery Operation Date: 01/24/19 07:00 Proposed Procedures p Left Total Knee Arthroplasty - Bassem Cha MD Height/Weight Height: 5 ft 6.5 in Weight: 136.078 kg Allergies Allergy/AdvReac Type Severity Reaction Status Date / Time Sulfa (Sulfonamide Allergy Severe swelling Verified 12/28/18 10:32 Antibiotics) tongue, itching sulfamethoxazole Allergy Severe SWELLING Verified 12/28/18 10:32 [From Bactrim] OF TONGUE trimethoprim [From Bactrim] Allergy Severe SWELLING Verified 12/28/18 10:32 OF TONGUE/ITCHING bacitracin Allergy Intermediate HIVES Verified 12/28/18 10:32 AROUND EYES WITH USAGE THERE neomycin Allergy Intermediate Hives Verified 12/28/18 10:32 [From Neosporin ([id number])] polymyxin B Allergy Intermediate LOCALIZED Verified 12/28/18 10:32 HIVES AROUND EYES adhesive Allergy Mild SKIN Verified 12/28/18 10:32 IRRITATION morphine Allergy Mild ITCHING Verified 12/28/18 10:32 bupivacaine AdvReac Intermediate "I WAS Verified 12/28/18 10:32 DOING GOOFY THINGS" Medications Home Medications Medication Instructions Recorded Confirmed Last Taken calcium carb-D3-mag ox-zinc ox 1 tab PO QAM 05/30/18 12/28/18 2 Weeks Ago ~06/15/18 cholecalciferol (vitamin D3) 1,000 unit PO QAM 05/30/18 12/28/18 2 Weeks Ago [Vitamin D3] ~06/15/18 cyanocobalamin (vitamin B-12) 1,000 mcg PO QAM 05/30/18 12/28/18 2 Weeks Ago [Vitamin B-12] ~06/15/18 omega 7-brv-lal-fish oil 1 tab PO QAM 05/30/18 12/28/18 2 Weeks Ago ~06/15/18 turmeric 1 tab PO QDD PRN 05/30/18 12/28/18 3 Weeks Ago ~06/08/18 potassium chloride ER 20 mEq 40 meq PO DAILY tab 12/19/18 12/28/18 Unknown tablet,extended release(part/cryst) triamcinolone acetonide 0.5 % 1 appln TOP BID #30 gm 12/19/18 12/28/18 Unknown topical cream triamterene 37.5 1 tab PO QAM #90 tab 12/19/18 12/28/18 Unknown mg-hydrochlorothiazide 25 mg tablet aspirin 81 mg PO HS 12/28/18 12/28/18 Unknown Past Medical History Medical History Eczema Psoriasis Sleep apnea CPAP CVA (cerebral vascular accident) OLD INFARCT NOTED ON MRI 15+ YEARS AGO- NO DEFICITS; ON ASA Hypertension Morbid obesity Past Family History Family History Father Family history of diabetes mellitus Hypertension Mother Endometrial cancer Cancer Hypertension Daughter Autistic disorder Past Surgical History Surgical History History of X2 History of lumpectomy of right breast History of total knee replacement Right TKA: 06/29/18: SAB x 1 at L3-L4 + PNB at [facility] Hx of colonoscopy Past Anesthesia History Per records, patient "felt goofy/out of it" with prior epidural; she states she was told this was related to bupivcaine-- No anaphylactic reaction to it. Has had local anesthetic at the dentist without problems. Patient s/p right TKA subsequently 06/2018 at [facility] with SAB + PNB. Per anesthesia progress notes, no complications/complaints post-operatively. Social History Smoking Status: Never smoker Do You Dip or Chew Tobacco: No Hx Alcohol Use: Yes alcohol intake frequency: holidays/special occasions only Hx Substance Use: No substance use type: does not use Testing Laboratory Results 12/12/18 WBC 8.13 H/H 13.0/37.9 PLATELETS 272 SODIUM 141 POTASSIUM 3.1 CHLORIDE 103 CO2 29 BUN 18 CREATININE 0.87 GLUCOSE 82 PT 10.3 PTT 27.9 INR 1.0 TYPE AND SCREEN O+Ab- 01/11/19 SODIUM 140 POTASSIUM 3.7 CHLORIDE 108 CO2 26 BUN 21 CREATININE 0.88 GLUCOSE 90 Hypokalemia: K+ 3.1 on 12/12/18 labs. Reviewed by PCP who felt related to loose stools + HCTZ. KCl 40meq continued and patient ordered repeat level for approximately 01/09. K+ normalized on repeat labs 01/11/19* Electrocardiogram Date: 06/06/18 SR with first degree AVB at 62bpm. "Otherwise normal" EKG. Chest X-Ray Date: 06/06/18 Findings: + NAD
--- NOTE | 2019-01-17 09:04 | Anesthesiology Consultation ---
Date of Service January 17, 2019 History Surgery Operation Date: 01/24/19 07:00 Proposed Procedures p Left Total Knee Arthroplasty - Bassem Cha MD Height/Weight Height: 5 ft 6.5 in Weight: 136.078 kg Allergies Allergy/AdvReac Type Severity Reaction Status Date / Time Sulfa (Sulfonamide Allergy Severe swelling Verified 12/28/18 10:32 Antibiotics) tongue, itching sulfamethoxazole Allergy Severe SWELLING Verified 12/28/18 10:32 [From Bactrim] OF TONGUE trimethoprim [From Bactrim] Allergy Severe SWELLING Verified 12/28/18 10:32 OF TONGUE/ITCHING bacitracin Allergy Intermediate HIVES Verified 12/28/18 10:32 AROUND EYES WITH USAGE THERE neomycin Allergy Intermediate Hives Verified 12/28/18 10:32 [From Neosporin ([id number])] polymyxin B Allergy Intermediate LOCALIZED Verified 12/28/18 10:32 HIVES AROUND EYES adhesive Allergy Mild SKIN Verified 12/28/18 10:32 IRRITATION morphine Allergy Mild ITCHING Verified 12/28/18 10:32 bupivacaine AdvReac Intermediate "I WAS Verified 12/28/18 10:32 DOING GOOFY THINGS" Medications Home Medications Medication Instructions Recorded Confirmed Last Taken calcium carb-D3-mag ox-zinc ox 1 tab PO QAM 05/30/18 12/28/18 2 Weeks Ago ~06/15/18 cholecalciferol (vitamin D3) 1,000 unit PO QAM 05/30/18 12/28/18 2 Weeks Ago [Vitamin D3] ~06/15/18 cyanocobalamin (vitamin B-12) 1,000 mcg PO QAM 05/30/18 12/28/18 2 Weeks Ago [Vitamin B-12] ~06/15/18 omega 2-jhu-xvq-fish oil 1 tab PO QAM 05/30/18 12/28/18 2 Weeks Ago ~06/15/18 turmeric 1 tab PO QDD PRN 05/30/18 12/28/18 3 Weeks Ago ~06/08/18 potassium chloride ER 20 mEq 40 meq PO DAILY tab 12/19/18 12/28/18 Unknown tablet,extended release(part/cryst) triamcinolone acetonide 0.5 % 1 appln TOP BID #30 gm 12/19/18 12/28/18 Unknown topical cream triamterene 37.5 1 tab PO QAM #90 tab 12/19/18 12/28/18 Unknown mg-hydrochlorothiazide 25 mg tablet aspirin 81 mg PO HS 12/28/18 12/28/18 Unknown Past Medical History Medical History Eczema Psoriasis Sleep apnea CPAP CVA (cerebral vascular accident) OLD INFARCT NOTED ON MRI 15+ YEARS AGO- NO DEFICITS; ON ASA Hypertension Morbid obesity Past Family History Family History Father Family history of diabetes mellitus Hypertension Mother Endometrial cancer Cancer Hypertension Daughter Autistic disorder Past Surgical History Surgical History History of X2 History of lumpectomy of right breast History of total knee replacement Right TKA: 06/29/18: SAB x 1 at L3-L4 + PNB at [facility] Hx of colonoscopy Past Anesthesia History Per records, patient "felt goofy/out of it" with prior epidural; she states she was told this was related to bupivcaine-- No anaphylactic reaction to it. Has had local anesthetic at the dentist without problems. Patient s/p right TKA subsequently 06/2018 at [facility] with SAB + PNB. Per anesthesia progress notes, no complications/complaints post-operatively. Social History Smoking Status: Never smoker Do You Dip or Chew Tobacco: No Hx Alcohol Use: Yes alcohol intake frequency: holidays/special occasions only Hx Substance Use: No substance use type: does not use
--- NOTE | 2019-01-21 11:44 | History and Physical Report ---
DATE OF ADMISSION: 01/24/2019 CHIEF COMPLAINT: Left knee pain. HISTORY OF PRESENT ILLNESS: A 63-year-old female who has had a lifelong history of bilateral knee pain and discomfort that has gradually gotten worse over time. She has been through extensive conservative treatment which became less successful over time. She eventually proceeded to develop tibial femoral subluxation. She underwent a right knee replacement back in June at the end of last year and has done remarkably well. This was changed her life with respect to her right knee. Her left knee continues to bother. She cannot walk more than a couple blocks due to her knee pain. The knee feels unstable. She has failed conservative care. Very happy with her right knee and would like to get her left knee fixed, so she can become more active. She has attempted to lose weight, but has been unsuccessful due to her limited mobility. PAST MEDICAL HISTORY: Significant for: 1. Hypertension. 2. Psoriasis. 3. Sleep apnea with CPAP machine. 4. Obesity with BMI of 48. PAST SURGICAL HISTORY: Previous surgeries include: 1. x2. 2. Lumpectomy. 3. Right knee replacement, 06/29/2018. ALLERGIES: 1. SULFA. 2. MARCAINE, WHICH HAS CAUSED HER TO BE GOOFY. CURRENT MEDICINES: Include: 1. Triamterene/hydrochlorothiazide once a day. 2. Vitamin D3. 3. Aspirin 81 mg. 4. [place]-3. 5. Fish oil. SOCIAL HISTORY: A 63-year-old female. She is . Two children. Rare alcohol intake. Does not smoke. REVIEW OF HISTORY: Negative for diabetes, neurologic problem, vascular problem, bleeding disorders. Denies any chest pain or shortness of breath. No history of DVT or PE. She does have significant psoriasis. PHYSICAL EXAMINATION: GENERAL: Pleasant, obese, middle-aged female. Looks to be in reasonably good health. HEENT: Benign. NECK: Supple, no lymphadenopathy. LUNGS: Clear to auscultation. HEART: Regular rate and rhythm. ABDOMEN: Soft, nontender, nondistended. EXTREMITIES: Grossly neurovascularly intact except as follows: Examination of the left knee reveals patient with fairly large soft tissue envelope. She walks with a bit of a waddling gait. She is tender over the medial joint line. She does have a varus deformity to her knee. Range of motion about 10 degrees show full extension to 110 degrees of flexion. No pain with hip motion. She does have fairly significant psoriatic plaque over the anterior lateral aspect of her left knee: Examination of the right knee reveals a well-healed incision. Range of motion 0-110. This is limited by soft tissues. A good straight leg raise. No signs of infection. X-RAYS: X-rays of the left knee reviewed. Shows advanced left knee DJD. She has complete loss of medial joint space with tibial femoral subluxation. ASSESSMENT: A 63-year-old female now 7.5 months out from a right knee replacement with advanced left knee degenerative joint disease. She has got severe disease that is really limiting her activities. She would like to proceed with left knee replacement. PLAN: We will take her to the operating room and do a left total knee replacement. The risks and benefits of this procedure were explained to the patient including but not limited to DVT, PE, , infection, neurological injury, vascular injury, bleeding problem, pain, limited range of motion, stiffness, failure to relieve symptoms, incomplete relief of symptoms, need for further surgery in future, fracture, leg length inequality and need for revision surgery. The patient understands and desires to proceed. Informed consent was obtained. We did have her see a senior civil engineer and she has done all she can to try and make this psoriatic plaques as good as possible. I do think this is increased risk of infection. The patient is aware of that, but would like to proceed. We will likely put a little bit of vancomycin in the cement. We will likely use a tibial stem for the tibia due to her large size and severe deformity.
[~2019-01-24 06:35] MED LIST changes: +ACETAMINOPHEN 500 MG TAB PO SCH; -ASPI81TA28 PO; +BUPIVACAINE LIPOSOME/PF 266 MG, BUPIVACAINE/EPINEPHRINE 50 ML, SODIUM CHLORIDE 0.9% 30 ... INFIL SCH; -CALC-51 PO; +CEFAZOLIN 3000MG 72.5 ML IV SCH; -CHOL1000 PO; -CLBPO15 TOP; -CYAN10004 PO; +FAMOTIDINE 20 MG TAB PO SCH; +GABAPENTIN 600 MG DOSE PO SCH; -GLUCTAB7 PO; -KETOCONAZOLE 2% TOP; -LIDOCAINE HCL 2% 2 ML VIAL (20MG/ML) ONE; +LR 500ML BOLUS, THEN 15ML/HR IV SCH; +LR 60ML/HR IV SCH; +METOCLOPRAMIDE HCL 10 MG TABLET PO SCH; -OMEG10007 PO; -PROPOFOL IV EMULSION 10 MG/ML 20 ML VIAL ONE; +SCOPOLAMINE 1.5 MG TDSY TD SCH; +TRANEXAMIC ACID 1,000 MG **IV Intra-op IV SCH; -TRIA37.5 PO
[2019-01-24] MEDS ORDERED: ROPIVACAINE 0.5% 5 MG/ML 30 ML VIAL ONE (06:38)
[2019-01-24] MEDS ORDERED: BUPIVACAINE 0.5 % 5 MG/1 ML PF 10ML VIAL ONE (06:38)
--- NOTE | 2019-01-24 06:50 | History & Physical Bridge Note ---
Date of Service January 24, 2019 History & Physical Bridge Note I have examined the patient, reviewed the History & Physical and in the interval since the performance of the History & Physical I have noted the following changes of clinical significance: no changes noted
[2019-01-24] MEDS ORDERED: fentaNYL citrate 100 MCG/2 ML VIAL ONE (07:10)
[2019-01-24] MEDS ORDERED: MIDAZOLAM HCL 1 MG/ML 2ML VIAL ONE ×2 (07:10→09:42)
[2019-01-24] MEDS ORDERED: BUPIVACAINE 0.25% 30 ML VIAL ONE (09:01)
[2019-01-24] MEDS ORDERED: SODIUM CHLORIDE 0.9% PF 50 ML VIAL ONE (09:01)
[2019-01-24] MEDS ORDERED: BUPIVACAINE LIPOSOME 1.3% 266 MG/20 ML VIAL ONE (09:01)
[2019-01-24] MEDS ORDERED: EPINEPHrine INJ 1 MG/ML AMP ONE (09:02)
[2019-01-24] MEDS ORDERED: BACITRACIN INJ 50,000 UNIT VIAL ONE (09:27)
[2019-01-24] MEDS ORDERED: VANCOMYCIN HCL 1000MG/20ML VIAL ONE (09:28)
[2019-01-24] MEDS ORDERED: KETAMINE HCL INJ 50 MG/ML 10 ML VIAL ONE (09:43)
[2019-01-24] MEDS ORDERED: PROPOFOL IV EMULSION 10 MG/ML 20 ML VIAL IV ONE ×2 (10:09→11:00)
--- NOTE | 2019-01-24 11:31 | Post Operative Brief Note ---
Immediate Post Op Note v1 Date of Surgery January 24, 2019 Pre & Post Diagnosis Operation Date: 01/24/19 08:50 Pre-Op Diagnosis: Left Knee Advanced Degenerative Joint Disease Post-Op Diagnosis: Left Knee Advanced Degenerative Joint Disease Procedure Operation Date: 01/24/19 08:50 Actual Procedures p Left Total Knee Arthroplasty(Left) - Bassem Cha MD Surgeon Bassem Cha MD [employer] Attendant Catie, PAC Estimated Blood Loss 50 Findings Consistent with Post-Op Diagnosis Fluids 500 cc Specimens Left Knee Drains Clark Catheter (A 16 Setswana clark catheter was inserted by BOSTON Mistry, without difficulty, clear yellow urine obtained, output to be monitored by Anesthesia.) Anesthesia Type Spinal MAC Complications none Disposition Accompanied Patient To Recovery: No Disposition: Recovery Room
--- NOTE | 2019-01-24 12:02 | XRay Report ---
XR knee LT 2V routine CLINICAL HISTORY: Surgical Post Op COMPARISON: None. DISCUSSION: Anatomic alignment posttotal left knee arthroplasty/revision. Soft tissue postoperative change. IMPRESSION: Anatomic alignment posttotal left knee arthroplasty/revision. The above report was generated using voice recognition software. It may contain grammatical, syntax or spelling errors. Electronically signed by: Abraham Camilo M.D. 01/24/2019 12:00 PM
--- NOTE | 2019-01-24 12:18 | Anesthesiology Progress Note ---
Date of Service January 24, 2019 Anesthesia Post Procedure Vital Signs Vital Signs: Temp Pulse Pulse Resp BP Pulse Ox 01/24/19 11:55 74 16 155/85 H 96 01/24/19 11:45 83 16 166/96 H 97 01/24/19 11:39 36.2 C L 91 H 12 147/92 H 95 01/24/19 07:02 36.7 C 77 20 183/89 H 96 Pain Intensity Left Knee: Pain Intensity: 5 Transfer of Care Handoff Completed per policy Notes Mental Status: alert / awake / arousable and participated in evaluation Patient Amnestic to Procedure: Yes Nausea / Vomiting: adequately controlled Pain: adequately controlled Airway Patency, RR, SpO2: stable & adequate BP & HR: stable & adequate Hydration State: stable & adequate Neuraxial Anesthesia: was administered and sensory block is resolving Anesthetic Complications: no major complications apparent
[2019-01-24] MEDS ORDERED: METOCLOPRAMIDE HCL INJ 5 MG/ML 2 ML VIAL IV PRN (12:22)
[2019-01-24] MEDS ORDERED: TRAMADOL HCL 50 MG TABLET PO PRN (12:22)
[2019-01-24] MEDS ORDERED: MAGNESIUM HYDROXIDE SUSP 30 ML UDC PO PRN (12:22)
[2019-01-24] MEDS ORDERED: ONDANSETRON INJ 2 MG/ML 2 ML VIAL IV PRN (12:22)
[2019-01-24] MEDS ORDERED: NON-FORMULARY MEDICATION (Turmeric 1 TAB) PO PRN (12:22)
[2019-01-24] MEDS ORDERED: NALOXONE HCL 0.4 MG/1 ML VIAL/CARP IV PRN (12:22)
[2019-01-24] MEDS ORDERED: ALUMINUM/MAGNESIUM SUSP 30 ML UDC PO PRN (12:22)
[2019-01-24] MEDS ORDERED: BISACODYL 10 MG SUPP PR PRN (12:22)
[2019-01-24] MEDS ORDERED: HYDROmorphone INJ 0.5 MG/0.5 ML SYR IV PRN (12:22)
[2019-01-24] MEDS: KETOROLAC 30 MG/ML VIAL IV SCH ×2 (13:50→20:28)
[2019-01-24] MEDS: SODIUM CHLORIDE 0.9% 1000ML 1,000 ML IV SCH ×2 (13:50→20:28)
[2019-01-24] MEDS: CHECK SCOPOLAMINE PATCH PLACEMENT SCH ×2 (15:37→21:43)
[2019-01-24] MEDS: ACETAMINOPHEN 500 MG TAB PO SCH (15:40)
[2019-01-24] MEDS ORDERED: Nursing to Pharmacy Communication ONE (16:31)
[2019-01-24] MEDS: ASCORBIC ACID 500 MG TAB PO SCH (17:09)
[2019-01-24] MEDS: FERROUS GLUCONATE 324 MG TAB PO SCH (17:09)
[2019-01-24] MEDS: CEFAZOLIN 2000MG 2,000 MG/15 ML SYR IV SCH (17:10)
[2019-01-24] MEDS ORDERED: TRANEXAMIC ACID 1,000 MG in 0.9 % SODIUM CHLORIDE 100 ML IV SCH (17:32)
[2019-01-24] MEDS: ASPIRIN 81 MG ECTAB PO SCH (20:28)
[2019-01-24] MEDS: SENNA 8.6 MG TAB PO SCH (20:28)
[2019-01-24] MEDS: DOCUSATE SODIUM 100 MG CAP PO SCH (20:28)
[2019-01-24] MEDS: TRIAMCINOLONE ACET 0.5% CR 15 GM TUBE TOP SCH (20:31)
--- NOTE | 2019-01-25 01:54 | Operative Report ---
DATE OF OPERATION: 01/24/2019 SURGEON: Bassem Cha MD TRAINING AND DEVELOPMENT OFFICER: BOSTON Perry PREOPERATIVE DIAGNOSIS: Left knee degenerative joint disease. POSTOPERATIVE DIAGNOSIS: Left knee degenerative joint disease. PROCEDURE PERFORMED: Left cemented posterior stabilized total knee arthroplasty. COMPLICATIONS: None. ESTIMATED BLOOD LOSS: 50 mL. FLUID REPLACEMENT: 500 mL crystalloid fluid replacement. TOURNIQUET TIME: 72 minutes at 350 mmHg. ANESTHESIA: Spinal with adductor canal block. DRAINS: None. SPECIMENS: Left knee sent for pathology. OPERATIVE INDICATIONS: The patient is a 63-year-old female, who has had a lifelong history of bilateral knee pain and discomfort, describes it has gotten worse over the years. She developed severe disease in both knees. She failed all conservative care. She underwent a right knee replacement and has done extremely well from this. She continues to be limited by her left knee pain. The patient elected to proceed with operative treatment. OPERATIVE FINDINGS: Operative findings revealed advanced left knee DJD. She had extensive grade 4 [id number] disease in all 3 compartments. She had severe tibiofemoral subluxation with some destruction of the medial tibial plateau. She had a large soft tissue envelope. Large knee joint effusion. OPERATIVE IMPLANTS: Operative implants consisted of, 1. A Biomet Vanguard size 65 left posterior stabilized femoral component. 2. A Biomet Vanguard 360 size 71 tibial tray with an 80 x 13 mm stem with a 2.5 mm offset and a small cruciate wing. 3. A 12 mm posterior stabilized polyethylene insert. 4. A 31 x 8 all poly patella. OPERATIVE PROCEDURE: The patient was taken to the operating room, identified and placed on the operating table in supine position. All contact areas were appropriately padded. IV antibiotics were provided by anesthesia team. A spinal anesthetic and adductor canal block had been provided in the holding area. Samano catheter was placed in sterile fashion. A left thigh tourniquet was then placed. The left lower extremity was then prepped and draped in the usual sterile fashion. The left leg was elevated and exsanguinated with Esmarch and tourniquet was placed at 350 mmHg. An anterior approach to the left knee was then performed through a longitudinal incision centered over the patella. I did deviate this off of a bit medially in order to try to minimize her psoriatic plaque exposure. I tried to go through this psoriatic plaque in as small a portion as possible. Sharp dissection was carried through the subcutaneous tissue down to the level of extensor mechanism. A medial parapatellar arthrotomy incision was made. Some subperiosteal dissection was carried out medially. The fat pad was resected from beneath the patellar tendon. The lateral patellofemoral ligament was released. The patella was everted and the knee was flexed. The osteophytes were taken off the distal femur. The ACL was absent. The PCL was then released from the distal femur and the tibia subluxated anteriorly. I then cut the tibial eminence. I then used the canal tick sewer to open the intramedullary canal. I reamed up to a size 13. I then used the intramedullary reamer to use as a cutting guide. The tibial cutting guide was then placed on the reamer and adjusted to take about a millimeter of bone off the most deficient aspect of the medial tibial plateau. The tibia was then sized to a size 71. I used a 2 mm offset. The proximal tibia was prepared for the 2 mm offset in the small cruciate wing. A trial implant was assembled and placed in the tibial canal. It fit quite nicely. Attention was then drawn to the femur. The distal femur was entered with a sharp drill bit. The intramedullary canal was suctioned. A left 5-degree valgus cutting guide was placed. The distal femoral cutting block was pinned in place. Distal femoral cut was made to take an additional 3 mm of bone off the distal femur. The femur was then sized to a size 65. We did downsize this slightly. The AP cutting block was pinned parallel to the epicondylar axis, which was 4 degrees of external rotation. The anterior cut, anterior chamfer cut, posterior cut, posterior chamfer cuts were made. Box cutting guide was placed and adjusted slightly lateral and the box cut was made. The knee was flexed. The remnants of the medial and lateral menisci were excised. The osteophytes were taken off the posterior aspect of the femur. A trial femoral component was placed. The tibial tray was already in place. I then trialed the knee and the 12 mm insert fit most appropriately. Attention was then drawn to the patella. The patella was cleaned of all soft tissues. Patella thickness measured 20 mm in thickness, cut down to 13. It was sized to a size 31 patella. Lug holes were drilled for a 31 patella. The lateral osteophyte was removed. Patella button was placed. Knee was taken through range of motion and the patella tracked nicely with no thumbs test. Attention was then drawn toward placing the permanent components. All trial components were removed. A double batch of [place] G cement was mixed with an additional gram of vancomycin due to her immunocompromised status and her significant psoriatic plaques. A size 65 left posterior stabilized femoral component, size 71 tibial tray with an 80 x 13 mm stem and small cruciate wing were cemented in place. I cemented only the metaphyseal component of the tibial tray. We also placed a 12 mm posterior stabilized polyethylene insert, and a 31 x 8 all poly patella. The knee was brought out into full extension until the cement hardened. A final cement check was then performed. The pericapsular tissues were injected with a total of 100 mL of combination of 20 mL of Exparel, 30 mL of normal saline, 50 mL of 0.25% Marcaine with epinephrine. The patient did receive 1 gram of tranexamic acid. The tourniquet was then let down for a final tourniquet time of 72 minutes. Hemostasis was assured with the use of electrocautery. The extensor mechanism was then closed with combination of #1 PDS suture and #1 Vicryl suture in a [id number] fashion. Extensor mechanism was checked and found to be intact. Subcutaneous tissues were then closed with #2 Dexon suture in a buried interrupted fashion. Skin was closed with skin ileana. Leg was then cleaned, dried and a sterile dressing of Xeroform, 4 x 4, sterile cast padding and Titi bandage were applied. The patient was then transferred to the recovery room in stable condition. The patient tolerated the procedure well with no complication. All needle and sponge counts were correct at the end of the operation. I attest to the content of the Intraoperative Record and any orders documented therein. Any exceptions are noted below. MTDD
[2019-01-25] MEDS: KETOROLAC 30 MG/ML VIAL IV SCH ×4 (02:05→20:29)
[2019-01-25] MEDS: CEFAZOLIN 2000MG 2,000 MG/15 ML SYR IV SCH (02:05)
[2019-01-25] MEDS: ACETAMINOPHEN 500 MG TAB PO SCH ×3 (06:08→21:46)
[2019-01-25 06:36] LABS: Hematocrit (blood only) 35.2 % (37-47); Hemoglobin 11.7 g/dL (12.0-16.0); Mean Corpuscular Hgb Conc 33.2 g/dL (32-36); Mean Corpuscular Volume 89.1 fL (80-100); Mean Platelet Volume 8.5 fL (7.4-10.4); Platelet Count 205 K/uL (130-400); RDW Coefficient of Variation 13.8 % (11.5-14.5); RDW Standard Deviation 45.3 fL (36.4-46.3); Red Blood Count 3.95 M/uL (4.2-5.4); White Blood Count 9.09 K/uL (4.8-10.8)
[2019-01-25 07:14] LABS: BUN Creatinine Ratio 16.9 (10-20); Calcium 8.4 mg/dl (8.5-10.1); Creatinine Clr Calc Pharmacy 101.1 ml/min; Est GFR (African American) 88.9; Est GFR (Non-African American) 76.7; Potassium 3.4 mmol/L (3.5-5.1)
[2019-01-25] MEDS: TRIAMCINOLONE ACET 0.5% CR 15 GM TUBE TOP SCH ×2 (08:58→20:30)
[2019-01-25] MEDS: CALCIUM 600MG + VIT D 400 IU TAB PO SCH (08:58)
[2019-01-25] MEDS: TRIAMTERENE/HCTZ 37.5/25MG TAB PO SCH (08:59)
[2019-01-25] MEDS: POTASSIUM CHLORIDE 20 MEQ TABCR PO SCH (08:59)
[2019-01-25] MEDS: FERROUS GLUCONATE 324 MG TAB PO SCH ×2 (08:59→17:14)
[2019-01-25] MEDS: OMEGA-3 (PURIFIED FISH OIL) 1 GM CAP PO SCH (08:59)
[2019-01-25] MEDS: ASPIRIN 81 MG ECTAB PO SCH ×2 (08:59→20:30)
[2019-01-25] MEDS: CYANOCOBALAMIN 500 MCG TABLET (VITAMIN B-12) PO SCH (09:00)
[2019-01-25] MEDS: ASCORBIC ACID 500 MG TAB PO SCH ×2 (09:00→17:14)
[2019-01-25] MEDS: CHOLECALCIFEROL 1,000 UNITS TAB PO SCH (09:00)
[2019-01-25] MEDS: DOCUSATE SODIUM 100 MG CAP PO SCH ×2 (09:00→20:30)
[2019-01-25] MEDS: MULTIVITAMIN TAB PO SCH (09:00)
--- NOTE | 2019-01-25 10:00 | Anesthesiology Progress Note ---
Date of Service January 25, 2019 Anesthesia Post Procedure Vital Signs Vital Signs: Temp Pulse Pulse Resp BP BP Pulse Ox 01/25/19 07:50 36.4 C L 68 18 144/84 H 97 01/25/19 02:36 36.6 C 67 16 158/83 H 159/86 H 95 01/24/19 23:26 36.5 C 63 16 156/84 H 97 01/24/19 19:13 36.6 C 59 L 16 143/84 H 99 01/24/19 15:09 36.5 C 70 18 162/95 H 100 01/24/19 14:10 62 16 149/83 H 99 01/24/19 13:10 58 L 18 168/79 H 99 01/24/19 12:38 59 L 18 148/82 H 97 01/24/19 11:55 74 16 155/85 H 96 01/24/19 11:45 83 16 166/96 H 97 01/24/19 11:39 36.2 C L 91 H 12 147/92 H 95 Notes Mental Status: alert / awake / arousable and participated in evaluation Nausea / Vomiting: adequately controlled Pain: adequately controlled Airway Patency, RR, SpO2: stable & adequate BP & HR: stable & adequate Hydration State: stable & adequate Neuraxial Anesthesia: sensory block resolved
[2019-01-25] MEDS ORDERED: POTASSIUM CHLORIDE 20 MEQ TABCR PO ONE (11:00)
--- NOTE | 2019-01-25 11:43 | Progress Note ---
DATE: 01/25/2019 SUBJECTIVE: A 63-year-old white female postop day 1 from a left knee replacement. She is doing well. Has a little bit more pain behind her knees, which she remembered from last time, but pain is pretty manageable otherwise. No chest pain or shortness of breath. Not feeling dizzy or lightheaded. OBJECTIVE: VITAL SIGNS: Temperature 36.4. Vital signs stable. GENERAL: Shows a pleasant, middle-aged female. She is sitting up in bed, looks reasonably comfortable. LUNGS: Clear to auscultation. HEART: Has a regular rate and rhythm. ABDOMEN: Soft, nontender, nondistended. EXTREMITIES: Grossly neurovascularly intact except as follows: Examination of the left lower extremity reveals the dressing to be intact. There is a little bit of bloody drainage anteriorly. She can dorsiflex and plantarflex her foot appropriately. NEUROLOGIC: She is neurologically intact. LABORATORY DATA: Hemoglobin is 11.7, hematocrit 35.2. Electrolytes are stable. Potassium is slightly low at 3.4. ASSESSMENT: A 63-year-old white female postop day 1 from left knee replacement, doing well. Her pain is reasonably well controlled. Nothing out of the ordinary. She is neurologically intact. PLAN: 1. DVT prophylaxis including thigh-high TEDs, SCDs, and aspirin twice a day. 2. PT/OT. Weight bear as tolerated. Left total knee protocol. 3. Pain control, doing well with current pain regimen. 4. Hypokalemia. Potassium is slightly low. We will supplement that today. 5. Disposition: She is planning to be discharged to home with some home health once adequately recovered.
[2019-01-25] MEDS: SENNA 8.6 MG TAB PO SCH (20:30)
[2019-01-26] MEDS: KETOROLAC 30 MG/ML VIAL IV SCH ×2 (02:05→07:30)
[2019-01-26] MEDS: ACETAMINOPHEN 500 MG TAB PO SCH (06:27)
[2019-01-26] MEDS: DOCUSATE SODIUM 100 MG CAP PO SCH (07:29)
[2019-01-26] MEDS: FERROUS GLUCONATE 324 MG TAB PO SCH (07:30)
[2019-01-26] MEDS: MULTIVITAMIN TAB PO SCH (07:30)
[2019-01-26] MEDS: CALCIUM 600MG + VIT D 400 IU TAB PO SCH (07:30)
[2019-01-26] MEDS: CHOLECALCIFEROL 1,000 UNITS TAB PO SCH (07:31)
[2019-01-26] MEDS: ASCORBIC ACID 500 MG TAB PO SCH (07:31)
[2019-01-26] MEDS: TRIAMCINOLONE ACET 0.5% CR 15 GM TUBE TOP SCH (07:31)
[2019-01-26] MEDS: OMEGA-3 (PURIFIED FISH OIL) 1 GM CAP PO SCH (07:31)
[2019-01-26] MEDS: TRIAMTERENE/HCTZ 37.5/25MG TAB PO SCH (07:31)
[2019-01-26] MEDS: ASPIRIN 81 MG ECTAB PO SCH (07:31)
[2019-01-26] MEDS: POTASSIUM CHLORIDE 20 MEQ TABCR PO SCH (07:31)
[2019-01-26] MEDS: CYANOCOBALAMIN 500 MCG TABLET (VITAMIN B-12) PO SCH (07:31)
--- NOTE | 2019-01-26 08:26 | Orthopedic Progress Note ---
Date of Service January 26, 2019 Assessment & Plan (1) Status post total left knee replacement: She was seen and examined by Dr. Crook today. Potassium is improved to 3.4 today. Continue PT/OT dvt prophylaxis with teds, scds, aspirin discharge home today with home health after pt Subjective POD #2 from left TKA. She's doing pretty well today. Pain is controlled. No new complaints. Physical Exam Physical Exam: She's alert and oriented. NAD. Left knee: Dressing clean, dry, intact. Moving toes appropriately, DF/PF, NVI Results & Data Vital Signs (Past 12 Hours) Vital Signs Temp Pulse Resp BP BP Pulse Ox 01/26/19 06:05 36.9 C 67 16 144/77 H 99 01/25/19 22:48 36.9 C 69 18 134/84 95
--- NOTE | 2019-01-27 19:24 | Discharge Summary ---
ADMITTING PHYSICIAN AND SURGEON: Dr. Bassem Cha. ADMITTING DIAGNOSIS: Left knee degenerative joint disease. SURGERY PERFORMED: Left total knee arthroplasty. SECONDARY DIAGNOSES: Hypertension, psoriasis, sleep apnea, obesity. CONSULTS: None obtained. HISTORY AND PHYSICAL EXAMINATION: Well documented in the patient's chart. HOSPITAL COURSE: The patient was admitted on 01/24/2019 underwent total knee arthroplasty, tolerated the procedure well. There were no complications. She was transferred to the PACU postoperatively and later to the orthopedic floor for further care. She was given Ancef for antibiotic prophylaxis, MIGUEL stockings, SCDs and aspirin for DVT prophylaxis. Hemoglobin, hematocrit and vital signs were monitored during her hospital stay and remained stable. She did not require any blood transfusions. There were no complications. She had hypokalemia postop day 1, she was given a potassium supplement and this did improve. By postoperative day 2, she was tolerating a regular diet, pain was controlled with oral pain medicine. She was participating in physical therapy. Postop day 2, she was discharged home, set up with home health services. She was given printed discharge instructions as well as new prescriptions for extra strength Tylenol, aspirin, oxycodone. Continue her home medications, continue physical therapy, weightbearing as tolerated, MIGUEL stockings. Follow up in approximately 2 weeks postop or sooner if there are any problems or concerns.
== END 2019-01-26 13:35 | disposition home health service (06) | DRG 470 ==
LOC: ASU 06:35 → 3E 11:34